=== PATIENT | male | born 1945 | race Caucasian/White ===

== ENCOUNTER 2017-10-21 10:32 | Emergency (ER) | payer OTHER, SELFPAY ==
[2017-10-21 10:42] VITALS: BP 134/84; PULSE 84; RESP 16; TEMP 36.4; O2SAT 96
[2017-10-21 11:54] LABS: Abs Immature Grans 0.02 k/cumm (0.0-0.09); Absolute Basophil Count 0.03 k/cumm (0.0-0.2); Absolute Eosinophil Count 0.06 k/cumm (0.0-0.7); Absolute Lymphocyte Count 1.78 k/cumm (1.2-3.4); Absolute Monocyte Count 0.49 k/cumm (0.11-0.7); Absolute Neutrophil Count 3.29 k/cumm (1.2-6.7); Basophils % 0.5; Eosinophils % 1.1; HCT 42.9 % (40.0-50.0); HGB 14.7 g/dL (13.5-17.5); Immature Grans % 0.4; Lymphocytes % 31.4; Mean Corp. HGB Concentration 34.3 g/dL (32.0-36.0); Mean Corpuscular Hemoglobin 31.5 pg (27.0-33.0); Mean Corpuscular Volume 92.1 fL (80-95); Mean Platelet Volume 10.8 fL (8.0-11.0); Monocytes % 8.6; Platelet Count 156 x1000/uL (130-400); RBC 4.66 m/cumm (4.50-6.00); RBC Distribution Width 14.3 % (11.8-14.1); White Blood Cell Count 5.67 k/cumm (4.4-10.8)
[2017-10-21 12:07] LABS: ALT 46 U/L (12-78); AST 25 U/L (15-37); Albumin 3.9 g/dL (3.4-5.0); Alkaline Phosphatase 61 U/L (46-116); Anion Gap 12.3 mmol/L (3-11); BUN 41 mg/dL (7-18); Bilirubin, Total 0.5 mg/dL (0.2-1.0); CO2 21.7 mmol/L (21.0-32.0); CREATININE 1.94 mg/dL (0.70-1.30); Calcium 8.6 mg/dL (8.5-10.1); Chloride 102 mmol/L (98-107); Estimated GFR 34.38 (mL/min/1.73m2); Glucose 106 mg/dL (70-100); Magnesium 1.7 mg/dL (1.8-2.4); Sodium 136 mmol/L (136-145)
[2017-10-21] MEDS: Normal Saline 1,000 ML 250 ML IV (12:09)
[2017-10-21 13:43] LABS: Bilirubin Negative (Negative); Blood Negative (Negative); Clarity Clear; Glucose Negative (Negative); Ketones Negative (Negative); Leukocyte Esterase Negative (Negative); Nitrite Negative (Negative); Urobilinogen 0.2 EU/dL (Up TO 0.2); pH 5.5 (5-8)
[2017-10-21 14:15] VITALS: BP 97/56; PULSE 77; RESP 16; TEMP 36.8; O2SAT 98
--- NOTE | 2017-10-21 14:30 | ED.GENADUL_ITS ---
Disposition Clinical Impression: Dehydration, Diarrhea Disposition: HOME Condition: Stable Instructions: Dehydration (ED), Acute Diarrhea (ED) Additional Instructions: Advance your diet as tolerated and stay well-hydrated drinking plenty of water. If you continue to have profuse diarrhea please provide outpatient sample to the lab for further testing and follow-up with your primary care provider in the next week for reassessment. Feel free to return to the emergency department immediately if you have any new or significant worsening of symptoms including abdominal pain, fever chills, mucus or bloody diarrhea. Referrals: Marco Lockwood [Primary Care Provider] - 1 week (As needed for reassessment if not improving) Medical Decision Making - Lab Data Laboratory Tests 10/21/17 10/21/17 10/21/17 11:45 11:45 13:34 WBC 5.67 RBC 4.66 Hgb 14.7 Hct 42.9 MCV 92.1 MCH 31.5 MCHC 34.3 RDW 14.3 H Plt Count 156 MPV 10.8 Immature Gran % 0.4 Neutrophils % 58.0 Lymphocytes % 31.4 Monocytes % 8.6 Eosinophils % 1.1 Basophils % 0.5 Absolute Neutrophils 3.29 Absolute Lymphocytes 1.78 Absolute Monocytes 0.49 Absolute Eosinophils 0.06 Absolute Basophils 0.03 Sodium 136 Potassium 4.0 Chloride 102 Carbon Dioxide 21.7 Anion Gap 12.3 H BUN 41 H Creatinine 1.94 H Estimated GFR/1.73 m2 34.38 Glucose 106 H Calcium 8.6 Magnesium 1.7 L Total Bilirubin 0.5 AST 25 ALT 46 Alkaline Phosphatase 61 Total Protein 8.0 Albumin 3.9 Urine Color Yellow Urine Clarity Clear Urine pH 5.5 Ur Specific Freedom 1.010 Urine Protein Negative Urine Ketones Negative Urine Blood Negative Urine Nitrite Negative Urine Bilirubin Negative Urine Urobilinogen 0.2 Ur Leukocyte Esterase Negative Urine Glucose Negative Results reviewed for labs ordered during visit: Yes - Medical Decision Making Patient presenting to the emergency department for chief complaint of diarrhea 3 days that seems to be worsened by eating. Patient denies any blood or mucus in his stools, recent antibiotic use, others in his immediate family that have similar symptoms. Patient also denies any fever chills. He states that he is very comfortable and denies any pain or discomfort only mild cramping with bowel movements which quickly resolves once bowel movement is done. He states that this is very watery diarrhea and he has intermittently attempted to use Imodium with no relief. Given patient's age and medical history concern for electrolyte abnormalities, dehydration. Plan to do labs and if possible obtain a stool sample. Pending these results patient given normal saline. After review of labs that do show signs of dehydration otherwise nondiagnostic patient was reassessed. Patient states that he feels slightly improved in his symptoms. Patient given p.o. hydration and crackers and still pending urinalysis. During urinalysis patient was able to provide a very scant amount of soft stool but stool was more formed per patient report and previously had been but still very soft in nature. Review of urinalysis that show appropriate specific gravity and fluids being complete with patient tolerating p.o. intake he was reassessed. Patient continuing to have appropriate p.o. intake of water hydration, states that he feels better, and again has had no further episodes of diarrhea. Patient was given outpatient order slip to provide stool sample if he continues to have symptoms otherwise to follow-up with his primary care provider as needed. Patient encouraged to return immediately for any new or worsening symptoms otherwise to well-hydrated at home. After discussion of diagnosis and plan of care with patient patient agreed and stated no further needs, questions, or concerns at this time. History of Present Illness - General Chief complaint: Nausea/Vomit/Diar Stated complaint: UNKNOWN Time Seen by Provider: 10/21/17 10:53 Source: patient, family, RN notes reviewed Mode of arrival: ambulatory Limitations: no limitations - History of Present Illness Initial comments: Patient reports for the past 3 days he has had intermittent loose stool. He denies any contaminated food intake, nontreated water, other people that he has been around with similar symptoms. He states that this worsens when he eats food and has loose stool but when he is not eating he does not have any symptoms. Patient denies any pain or discomfort and states he has not recently been on antibiotics. He does state when he has bowel movements he does end up having some mild cramping which quickly resolves. Onset/Timin -: days(s) Location: abdomen Quality: other (Intermittent cramping) Consistency: now resolved Improves with: none Worsens with: none Associated Symptoms: denies other symptoms Treatments Prior to Arrival: other (Imodium yesterday) - Related Data Aspirin 81 mg PO DAILY tab-cap 07/02/14 Lisinopril 20 mg PO DAILY tab-cap 07/02/14 Niacin (Inositol Niacinate) [Niacin 500 mg Capsule] 1,500 mg PO DAILY 07/02/14 Metoprolol Succinate 25 mg PO BID #45 tab-cap 10/06/14 Metoprolol Tartrate 100 mg PO BID tab-cap 10/06/14 Allergies Allergy/AdvReac Type Severity Reaction Status Date / Time gemfibrozil [From Lopid] Allergy Unverified 10/21/17 10:44 Penicillins Allergy Unverified 10/21/17 10:44 spironolactone Allergy Unverified 10/21/17 10:44 Hgptyzv-Rwy-Hem Reductase Allergy Unverified 10/21/17 10:44 Inhibitor Review of Systems Constitutional: malaise (Mild). denies: chills, fever Respiratory: denies: cough, shortness of breath, stridor, wheezing Cardiovascular: denies: chest pain, palpitations, syncope Gastrointestinal: as per HPI, diarrhea. denies: abdominal pain, nausea, vomiting, constipation, hematemesis, melena, hematochezia, other (Patient denies any blood or mucus noted in stools.) Genitourinary: denies: dysuria Musculoskeletal: denies: back pain Past Medical History - Past Medical History Medical history: CAD, hyperlipidemia Idiopathic cardiomyopathy, diverticulosis, testicular atrophy Surgical history: angioplasty/stent, appendectomy Psychiatric history: depression - Social History Smoking status: never smoker Alcohol use: none Drug use: none Living Situation: lives with family General Exam - General Limitations: no limitations General appearance: alert, in no apparent distress - Eye Eye exam: Absent: scleral icterus - ENT ENT exam: Present: normal orophraynx, mucous membranes dry (Mildly dry oral mucosa) - Respiratory Respiratory exam: Present: normal lung sounds bilaterally. Absent: respiratory distress, wheezes, rales, rhonchi, stridor - Cardiovascular Cardiovascular Exam: Present: regular rate, normal rhythm, normal heart sounds. Absent: systolic murmur, diastolic murmur, rubs, gallop, clicks, S3, S4 - GI/Abdominal GI/Abdominal exam: Present: soft, normal bowel sounds. Absent: tenderness, guarding, rebound, rigid, organomegaly, mass, bruit, pulsatile mass - Back Exam Back exam: Absent: CVA tenderness (R), CVA tenderness (L) - Neurological Exam Neurological exam: Present: alert, oriented X3, normal gait. Absent: altered - Skin Skin exam: Present: warm, dry, intact, normal color. Absent: cyanosis, diaphoretic, pallor, mottled Course Vital Signs - 24 hr 10/21/17 10/21/17 10:42 14:15 Temperature 36.4 C L 36.8 C Pulse 84 77 Respiratory 16 16 Rate Blood Pressure 134/84 97/56 Pulse Oximetry 96 98
[2017-10-21 14:37] VITALS: BP 101/56; PULSE 77; RESP 16; TEMP 36.8; O2SAT 98
== END 2017-10-21 14:35 | disposition home or self-care (01) ==
PROVIDERS: Nurse Practitioner Family; Emergency Provider Emergency Medicine; PCP Family Medicine
DX: R19.7 Diarrhea, unspecified (principal); E86.0 Dehydration
CPT/HCPCS: 36415; 80053; 87329; 96360; 96361; 99284; 81003; 83735; 85025; 87177; 87324

== ENCOUNTER → 2017-11-06 11:48 | Outpatient (BNVA) | payer OTHER, SELFPAY | PROVIDERS: PCP Family Medicine; Visit Provider Nurse Practitioner Family | DX: I25.5 Ischemic cardiomyopathy (principal); Z45.018 Encounter for adjustment and management of other part of cardiac pacemaker; I25.10 Atherosclerotic heart disease of native coronary artery without angina pectoris; Z95.810 Presence of automatic (implantable) cardiac defibrillator; E83.42 Hypomagnesemia | CPT/HCPCS: 93289; 99214 ==

== ENCOUNTER 2017-11-15 00:55 | Outpatient (CLI) | payer OTHER, SELFPAY ==
--- NOTE | 2017-11-15 10:40 | MERGE_ITS ---
*[facility]* *[facility]* [address] [place] [address] Date of study: 11/15/2017 Transthoracic Echocardiography M-mode, complete 2D, complete spectral Doppler, and color Doppler *STUDY CONCLUSIONS* Impressions: Persistence of thrombus material on defibrillator lead, with a large mobile part in the RA. Summary: 1. Left ventricle: The cavity size was normal. Wall thickness was normal. Systolic function was moderately reduced. The estimated ejection fraction was 35-40%. Moderate diffuse hypokinesis with regional variations. 2. Aortic valve: Moderate focal thickening involving the noncoronary cusp. There was trivial regurgitation. 3. Mitral valve: Mild thickening. 4. Right ventricle: The cavity size was mildly dilated. Wall thickness was normal. Pacer wire or catheter noted in right ventricle. Systolic function was mildly reduced. 5. Right atrium: There was a moderate to large, partially mobile thrombus attached to the device lead in the atrial cavity (size 1.8 x 0.8 cm for the mobile part, more echodense material along the lead). 6. Tricuspid valve: There was mild-moderate regurgitation. 7. Pulmonary arteries: Pulmonary systolic pressure was mildly increased. PA peak pressure: 43mm Hg (S). *PATIENT PRESENTATION* Height: 175.3cm ((69in) ) S/D Pressure: 112 / 67 Weight: 83.9kg ((184.6lb) ) BSA: 2.04m^2 Test start time: 10:50 AM. Test stop time: 11:40 AM. PERFORMING Unknown PERFORMING [facility] ORDERING Clive Liang, Mikayla REFERRING TarnovMikayla Finn Aprn PEDIATRIC PSYCHOLOGIST Estefani Araujo, RT (R)(CT), RDCS *PROCEDURE DATA* Procedure information: The patient was identified by two identifiers. This study was interpreted by [facility]. Pertinent images and digital data are archived for permanent storage and are available for subsequent review. Comparison was made to the study of 05/08/2017. Study status: Routine. Transthoracic echocardiography. M-mode, complete 2D, complete spectral Doppler, and color Doppler. A Transthoracic Echocardiogram was performed. Scanning was performed from the parasternal, apical, subcostal, and suprasternal notch acoustic windows. Images were obtained using an [id number] cardiac ultrasound machine. Study completion: The patient tolerated the procedure well. History: PMH: Ischemic CM. *CARDIAC ANATOMY* Left ventricle: The cavity size was normal. Wall thickness was normal. Systolic function was moderately reduced. The estimated ejection fraction was 35-40%. Moderate diffuse hypokinesis with regional variations. There was no evidence of elevated ventricular filling pressure by Doppler parameters. Aortic valve: Trileaflet; mildly thickened, mildly calcified leaflets. Moderate focal thickening involving the noncoronary cusp. Mobility was not restricted. Doppler: Transvalvular velocity was within the normal range. There was no stenosis. There was trivial regurgitation. VTI ratio of LVOT to aortic valve: 0.64. Valve area (VTI): 2.1cm^2. Indexed valve area (VTI): 1cm^2/m^2. Peak velocity ratio of LVOT to aortic valve: 0.62. Valve area (Vmax): 2cm^2. Indexed valve area (Vmax): 1cm^2/m^2. Mean velocity ratio of LVOT to aortic valve: 0.64. Valve area (Vmean): 2.1cm^2. Indexed valve area (Vmean): 1cm^2/m^2. Mean gradient (S): 2.3mm Hg. Peak gradient (S): 3.9mm Hg. Aorta: Aortic root: The aortic root was at upper normal limits. Aortic arch: The aortic arch was normal in size. Mitral valve: Mildly thickened leaflets. Mild thickening. Mobility was not restricted. Doppler: Transvalvular velocity was within the normal range. There was no evidence for stenosis. There was trivial regurgitation. Valve area by pressure half-time: 3.9cm^2. Indexed valve area by pressure half-time: 1.9cm^2/m^2. Left atrium: The atrium was normal in size. Right ventricle: The cavity size was mildly dilated. Wall thickness was normal. Pacer wire or catheter noted in right ventricle. Systolic function was mildly reduced. Pulmonic valve: Poorly visualized. Doppler: Transvalvular velocity was within the normal range. There was no evidence for stenosis. There was trivial regurgitation. Tricuspid valve: Structurally normal valve. Doppler: Transvalvular velocity was within the normal range. There was no evidence for stenosis. There was mild-moderate regurgitation. Pulmonary artery: Pulmonary systolic pressure was mildly increased. Main pulmonary artery: The artery was not well visualized. Right atrium: The atrium was normal in size. Pacer wire or catheter noted in right atrium. There was a moderate to large, partially mobile thrombus attached to the device lead in the atrial cavity (size 1.8 x 0.8 cm for the mobile part, more echodense material along the lead). Pericardium: There was no pericardial effusion. Systemic veins: Inferior vena cava: Poorly visualized. The vessel was patent and normal in size. The respirophasic diameter changes were in the normal range (greater than or equal to 50%). Baseline ECG: Paced rhythm. Measurements Left ventricle Value 05/18/2017 Reference LV ID, ED, PLAX 5.1 cm 5.2 3.5 - 6.0 LV ID, ES, PLAX (H) 4.2 cm 4.4 2.1 - 4.0 LV PW thickness, ED, PLAX 1.0 cm 1.0 LV end-diastolic volume, 83 ml 63 1-p A2C LV ejection fraction, 1-p 35 % 29 A2C LV end-diastolic volume, 98 ml 98 1-p A4C LV ejection fraction, 1-p 39 % 33 A4C LV e', lateral 0.085 m/sec 0.051 LV E/e', lateral 6 7 LV e', medial 0.049 m/sec 0.04 LV E/e', medial 11 9 LV e', average 0.067 m/sec 0.045 LV E/e', average 8 8 Ventricular septum Value 05/18/2017 Reference IVS thickness, ED, PLAX 1.0 cm 1.0 LVOT Value 05/18/2017 Reference LVOT ID, A-P 2.0 cm 2.0 LVOT area 3.3 cm^2 3.1 LVOT peak velocity, S 0.61 m/sec 0.65 LVOT mean velocity, S 0.46 m/sec 0.43 LVOT VTI, S 14.9 cm 12.8 LVOT peak gradient, S 1.5 mm Hg 1.7 LVOT mean gradient, S 1 mm Hg 0.9 Stroke volume (SV), LVOT 49 ml 40 DP Stroke index (SV/bsa), 24 ml/m^2 19 LVOT DP Aortic valve Value 05/18/2017 Reference Aortic valve peak 1 m/sec 0.9 velocity, S Aortic valve mean 0.72 m/sec 0.72 velocity, S Aortic valve VTI, S 23.2 cm 17.7 Aortic mean gradient, S 2.3 mm Hg 2.2 Aortic peak gradient, S 3.9 mm Hg VTI ratio, LVOT/AV 0.64 0.72 Aortic valve area, VTI 2.1 cm^2 2.3 Velocity ratio, peak, 0.62 0.69 LVOT/AV Aortic valve area, peak 2 cm^2 2.2 velocity Velocity ratio, mean, 0.64 0.6 LVOT/AV Aortic valve area, mean 2.1 cm^2 1.9 velocity Aortic valve area/bsa, 1 cm^2/m^2 0.9 mean velocity Aorta Value 05/18/2017 Reference Aortic root ID, ED 3.7 cm 3.8 Ascending aorta ID, A-P, S 3.3 cm 3.3 Aortic arch ID, 2.5 cm 2.0 - 3.6 innominate-LCCA RVOT Value 05/18/2017 Reference RVOT VTI, S 9.6 cm 7.9 Left atrium Value 05/18/2017 Reference LA ID, A-P, ES 2.7 cm LA ID/bsa, A-P 1.3 cm/m^2 <=2.2 LA area, ES, A4C 18.5 cm^2 18.6 8.8 - 23.4 LA area, ES, A2C 14 cm^2 13 LA volume/bsa, ES, 1-p A4C 27 ml/m^2 25 LA volume, ES, 2-p 36 ml 42 LA volume/bsa, ES, 2-p 18 ml/m^2 21 LA/aortic root ratio 0.71 Mitral valve Value 05/18/2017 Reference Mitral E-wave peak 0.53 m/sec 0.37 velocity Mitral A-wave peak 0.75 m/sec 0.67 velocity Mitral deceleration time 196 ms 268 150 - 230 Mitral pressure half-time 57 ms 78 Mitral E/A ratio, peak 0.7 0.55 Mitral valve area, PHT, DP 3.9 cm^2 2.8 Pulmonary veins Value 05/18/2017 Reference Pulmonary vein peak 0.5 m/sec 0.55 velocity, S Pulmonary vein peak 0.34 m/sec 0.38 velocity, D Pulmonary vein velocity 1.47 1.45 ratio, peak, S/D Pulmonary vein A-wave 0.32 m/sec 0.29 reversal peak velocity Pulmonary vein A-wave 122 ms reversal duration Pulmonary arteries Value 05/18/2017 Reference PA pressure, S, DP (H) 43 mm Hg <=30 Tricuspid valve Value 05/18/2017 Reference Tricuspid regurg peak 2.9 m/sec 2.6 velocity Tricuspid peak RV-RA 32.9 mm Hg 27.4 gradient Right atrium Value 05/18/2017 Reference RA area, ES, A4C 15.3 cm^2 15.7 8.3 - 19.5 Systemic veins Value 05/18/2017 Reference Estimated CVP 10 mm Hg Right ventricle Value 05/18/2017 Reference RV pressure, S, DP (H) 43 mm Hg <=30 Legend: (L) and (H) mason values outside specified reference range. I have personally reviewed the images and have reviewed and edited the reported findings. Electronically signed by Hui Dee 11/15/2017 14:59
== END 2017-11-15 01:15 ==
PROVIDERS: PCP Family Medicine; Visit Provider Nurse Practitioner Family
DX: I25.5 Ischemic cardiomyopathy (principal); I25.10 Atherosclerotic heart disease of native coronary artery without angina pectoris; I10 Essential (primary) hypertension; E11.9 Type 2 diabetes mellitus without complications; Z95.0 Presence of cardiac pacemaker; I07.1 Rheumatic tricuspid insufficiency
CPT/HCPCS: 93306

== ENCOUNTER → 2017-12-05 14:07 | Outpatient (BNVA) | payer OTHER, SELFPAY | PROVIDERS: PCP Family Medicine; Visit Provider Internal Medicine Cardiovascular Disease | DX: T85.868A Thrombosis due to other internal prosthetic devices, implants and grafts, initial encounter (principal); Z95.810 Presence of automatic (implantable) cardiac defibrillator; I25.10 Atherosclerotic heart disease of native coronary artery without angina pectoris; I25.5 Ischemic cardiomyopathy; Z79.01 Long term (current) use of anticoagulants | CPT/HCPCS: 99215 ==

== ENCOUNTER 2018-05-02 12:21 | Outpatient (CLI) | payer OTHER, SELFPAY ==
--- NOTE | 2018-05-02 11:53 | DI.RAD_ITS ---
SYMPTOMS/DIAGNOSIS: RT FOOT PAIN, M79.671 RIGHT FOOT: No fracture or dislocation is seen. There are no significant degenerative changes. No bony erosions are seen. An ossicle is seen adjacent to the lateral aspect of the anterior calcaneus. IMPRESSION: Negative right foot.
[2018-05-02 12:44] LABS: HCT 41.8 % (40.0-50.0); HGB 13.8 g/dL (13.5-17.5); Mean Corpuscular Hemoglobin 30.9 pg (27.0-33.0); Mean Corpuscular Volume 93.7 fL (80-95); Mean Platelet Volume 10.7 fL (8.0-11.0); Platelet Count 171 x1000/uL (130-400); RBC 4.46 m/cumm (4.50-6.00); RBC Distribution Width 14.3 % (11.8-14.1); White Blood Cell Count 7.21 k/cumm (4.4-10.8)
[2018-05-02 13:36] LABS: C-Reactive Protein 1.34 mg/dL (0.0-0.3); Uric Acid 7.8 mg/dL (3.5-7.2)
== END 2018-05-02 12:41 ==
PROVIDERS: PCP Family Medicine; Visit Provider Nurse Practitioner
DX: M10.9 Gout, unspecified (principal); M79.671 Pain in right foot
CPT/HCPCS: 36415; 85027; 73630; 84550; 86140

== ENCOUNTER → 2018-05-07 11:21 | Outpatient (BNVA) | payer OTHER, SELFPAY | PROVIDERS: PCP Family Medicine; Visit Provider Nurse Practitioner Family | DX: T85.8 Other specified complications of internal prosthetic devices, implants and grafts, not elsewhere classified (principal); Z79.01 Long term (current) use of anticoagulants; I25.10 Atherosclerotic heart disease of native coronary artery without angina pectoris; E83.42 Hypomagnesemia; I25.5 Ischemic cardiomyopathy; E78.5 Hyperlipidemia, unspecified; Z45.02 Encounter for adjustment and management of automatic implantable cardiac defibrillator | CPT/HCPCS: 93289; 99214 ==

== ENCOUNTER 2018-05-16 00:55 | Outpatient (CLI) | payer OTHER, SELFPAY ==
--- NOTE | 2018-05-16 10:30 | MERGE_ITS ---
*[facility]* *[facility]* [address] [place] [address] Date of study: 05/16/2018 Transthoracic Echocardiography M-mode, complete 2D, complete spectral Doppler, and color Doppler *STUDY CONCLUSIONS* Summary: 1. Study data: Comparison was made to the study of 11/15/2017. EF 35-40% then. Mobile thrombus noted in association with device lead, 1.8 x 0.8 cm. 2. Left ventricle: The cavity size was normal. Systolic function was mildly reduced. The estimated ejection fraction was 45-50%. 3. Mitral valve: There was mild regurgitation. 4. Right ventricle: The cavity size was normal. Wall thickness was normal. Pacer wire or catheter noted in right ventricle. Systolic function was normal. 5. Right atrium: Pacer wire or catheter noted in right atrium. Small strandlike echodensity noted on device lead in RA. Measures 0.6 cm in long axis. Mass is of homogeneous echotexture, demonstrates movement independent of other cardiac structures. 6. Atrial septum: No defect or patent foramen ovale was identified. 7. Tricuspid valve: There was mild-moderate regurgitation. 8. Pulmonary arteries: Pulmonary systolic pressure was in the range of 20mm Hg to 30mm Hg. 9. Inferior vena cava: The vessel was patent and normal in size. The respirophasic diameter changes were in the normal range (greater than or equal to 50%), consistent with normal central venous pressure. *PATIENT PRESENTATION* Height: 172.7cm ((68in) ) S/D Pressure: 102 / 59 Weight: 83.9kg ((184.6lb) ) BSA: 2.03m^2 Test start time: 10:40 AM. Test stop time: 11:40 AM. ORDERING Mikayla Duffy REFERRING Mikayla Duffy PERFORMING Unknown PERFORMING [facility] [employer]OUR MIXER RT Kala Samaniego)(LYN), [facility] CONSULTING Marco Lockwood *PROCEDURE DATA* Procedure information: The patient was identified by two identifiers. This study was interpreted by [facility]. Pertinent images and digital data are archived for permanent storage and are available for subsequent review. Comparison was made to the study of 11/15/2017. Study status: Routine. Transthoracic echocardiography. M-mode, complete 2D, complete spectral Doppler, and color Doppler. A Transthoracic Echocardiogram was performed. Scanning was performed from the parasternal, apical, subcostal, and suprasternal notch acoustic windows. Images were obtained using an [id number] cardiac ultrasound machine. Image quality was good. Study completion: The patient tolerated the procedure well. History: PMH: ? Size of clot/thrombus on lead. Cardiomyopathy. i42.9 ICD z 95.810 *CARDIAC ANATOMY* Left ventricle: The cavity size was normal. Systolic function was mildly reduced. The estimated ejection fraction was 45-50%. The tissue Doppler parameters were abnormal. There was no evidence of elevated ventricular filling pressure by Doppler parameters. Aortic valve: Trileaflet; mildly thickened, mildly calcified leaflets. Doppler: There was no stenosis. There was no regurgitation. VTI ratio of LVOT to aortic valve: 0.63. Valve area (VTI): 2.1cm^2. Indexed valve area (VTI): 1cm^2/m^2. Peak velocity ratio of LVOT to aortic valve: 0.65. Valve area (Vmax): 2.1cm^2. Indexed valve area (Vmax): 1.1cm^2/m^2. Mean velocity ratio of LVOT to aortic valve: 0.66. Valve area (Vmean): 2.2cm^2. Indexed valve area (Vmean): 1.1cm^2/m^2. Mean gradient (S): 2.2mm Hg. Peak gradient (S): 3.5mm Hg. Aorta: Aortic root: The aortic root was normal in size. Ascending aorta: The ascending aorta was normal in size. Mitral valve: Doppler: There was no evidence for stenosis. There was mild regurgitation. Valve area by pressure half-time: 2.8cm^2. Indexed valve area by pressure half-time: 1.4cm^2/m^2. Left atrium: The atrium was normal in size. Atrial septum: No defect or patent foramen ovale was identified. Right ventricle: The cavity size was normal. Wall thickness was normal. Pacer wire or catheter noted in right ventricle. Systolic function was normal. Pulmonic valve: Doppler: There was no evidence for stenosis. There was mild regurgitation. Peak gradient (S): 3.7mm Hg. Tricuspid valve: Doppler: There was mild-moderate regurgitation. Pulmonary artery: Poorly visualized. Pulmonary systolic pressure was in the range of 20mm Hg to 30mm Hg. Right atrium: The atrium was normal in size. Pacer wire or catheter noted in right atrium. Pericardium: There was no pericardial effusion. Systemic veins: Inferior vena cava: Well visualized. The vessel was patent and normal in size. The respirophasic diameter changes were in the normal range (greater than or equal to 50%), consistent with normal central venous pressure. Baseline ECG: Paced rhythm. Measurements Left ventricle Value 11/15/2017 Reference LV ID, ED, PLAX 5.1 cm 5.1 3.5 - 6.0 LV ID, ES, PLAX (H) 4.1 cm 4.2 2.1 - 4.0 LV PW thickness, ED, PLAX 1.0 cm 1.0 LV end-diastolic volume, 91 ml 83 1-p A2C LV ejection fraction, 1-p 40 % 35 A2C LV end-diastolic volume, 107 ml 98 1-p A4C LV ejection fraction, 1-p 48 % 39 A4C LV e', lateral 0.049 m/sec 0.085 LV E/e', lateral 7 6 LV e', medial 0.04 m/sec 0.049 LV E/e', medial 9 11 LV e', average 0.044 m/sec 0.067 LV E/e', average 8 8 Ventricular septum Value 11/15/2017 Reference IVS thickness, ED, PLAX 1.0 cm 1.0 LVOT Value 11/15/2017 Reference LVOT ID, A-P 2.0 cm 2.0 LVOT area 3.3 cm^2 3.3 LVOT peak velocity, S 0.61 m/sec 0.61 LVOT mean velocity, S 0.47 m/sec 0.46 LVOT VTI, S 11.3 cm 14.9 LVOT peak gradient, S 1.5 mm Hg 1.5 LVOT mean gradient, S 1 mm Hg 1 Stroke volume (SV), LVOT 37 ml 49 DP Stroke index (SV/bsa), 18 ml/m^2 24 LVOT DP Aortic valve Value 11/15/2017 Reference Aortic valve peak 0.9 m/sec 1 velocity, S Aortic valve mean 0.71 m/sec 0.72 velocity, S Aortic valve VTI, S 18.0 cm 23.2 Aortic mean gradient, S 2.2 mm Hg 2.3 Aortic peak gradient, S 3.5 mm Hg 3.9 VTI ratio, LVOT/AV 0.63 0.64 Aortic valve area, VTI 2.1 cm^2 2.1 Velocity ratio, peak, 0.65 0.62 LVOT/AV Aortic valve area, peak 2.1 cm^2 2 velocity Velocity ratio, mean, 0.66 0.64 LVOT/AV Aortic valve area, mean 2.2 cm^2 2.1 velocity Aortic valve area/bsa, 1.1 cm^2/m^2 1 mean velocity Aorta Value 11/15/2017 Reference Aortic root ID, ED 3.7 cm 3.7 Ascending aorta ID, A-P, S 3.4 cm 3.3 RVOT Value 11/15/2017 Reference RVOT VTI, S 10.4 cm 9.6 Left atrium Value 11/15/2017 Reference LA ID, A-P, ES 2.7 cm 2.7 LA ID/bsa, A-P 1.3 cm/m^2 1.3 <=2.2 LA area, ES, A4C 17.6 cm^2 18.5 8.8 - 23.4 LA area, ES, A2C 13 cm^2 14 LA volume/bsa, ES, 1-p A4C 26 ml/m^2 27 LA volume, ES, 2-p 38 ml 36 LA volume/bsa, ES, 2-p 19 ml/m^2 18 LA/aortic root ratio 0.72 0.71 Mitral valve Value 11/15/2017 Reference Mitral E-wave peak 0.34 m/sec 0.53 velocity Mitral A-wave peak 0.63 m/sec 0.75 velocity Mitral deceleration time (H) 268 ms 196 150 - 230 Mitral pressure half-time 78 ms 57 Mitral E/A ratio, peak 0.54 0.7 Mitral valve area, PHT, DP 2.8 cm^2 3.9 Pulmonary veins Value 11/15/2017 Reference Pulmonary vein peak 0.75 m/sec 0.5 velocity, S Pulmonary vein peak 0.31 m/sec 0.34 velocity, D Pulmonary vein velocity 2.42 1.47 ratio, peak, S/D Pulmonary vein A-wave 0.85 m/sec 0.32 reversal peak velocity Tricuspid valve Value 11/15/2017 Reference Tricuspid regurg peak 2.5 m/sec 2.9 velocity Tricuspid peak RV-RA 24.6 mm Hg 32.9 gradient Right atrium Value 11/15/2017 Reference RA area, ES, A4C 17.6 cm^2 15.3 8.3 - 19.5 Pulmonic valve Value 11/15/2017 Reference Pulmonic peak gradient, S 3.7 mm Hg Legend: (L) and (H) mason values outside specified reference range. I have personally reviewed the images and have reviewed and edited the reported findings. Electronically signed by Hira Downey MD 05/16/2018 14:30
== END 2018-05-16 01:15 ==
PROVIDERS: PCP Family Medicine; Visit Provider Nurse Practitioner Family
DX: I42.9 Cardiomyopathy, unspecified (principal); I25.10 Atherosclerotic heart disease of native coronary artery without angina pectoris; I34.1 Nonrheumatic mitral (valve) prolapse; I36.1 Nonrheumatic tricuspid (valve) insufficiency; Z95.810 Presence of automatic (implantable) cardiac defibrillator
CPT/HCPCS: 93306

== ENCOUNTER 2018-05-23 09:39 | Outpatient (CLI) | payer OTHER, SELFPAY ==
[2018-05-23 10:46] LABS: HCT 38.2 % (40.0-50.0); HGB 12.9 g/dL (13.5-17.5); Mean Corp. HGB Concentration 33.8 g/dL (32.0-36.0); Mean Corpuscular Hemoglobin 31.4 pg (27.0-33.0); Mean Corpuscular Volume 92.9 fL (80-95); Mean Platelet Volume 10.8 fL (8.0-11.0); Platelet Count 163 x1000/uL (130-400); RBC 4.11 m/cumm (4.50-6.00); RBC Distribution Width 14.3 % (11.8-14.1); White Blood Cell Count 5.26 k/cumm (4.4-10.8)
[2018-05-23 11:52] LABS: ALT 40 U/L (12-78); AST 23 U/L (15-37); Albumin 3.8 g/dL (3.4-5.0); Alkaline Phosphatase 64 U/L (46-116); Anion Gap 9.7 mmol/L (3-11); BUN 21 mg/dL (7-18); Bilirubin, Total 0.4 mg/dL (0.2-1.0); CO2 26.3 mmol/L (21.0-32.0); CREATININE 1.01 mg/dL (0.70-1.30); Chloride 103 mmol/L (98-107); Cholesterol 226 mg/dL (50-200); Glucose 139 mg/dL (70-100); HDL Cholesterol 32 mg/dL (40-60); LDL CHOLESTEROL 81 mg/dL (<100); Magnesium 1.7 mg/dL (1.8-2.4); Potassium 4.3 mmol/L (3.5-5.1); Sodium 139 mmol/L (136-145); TSH 2.34 uIU/mL (0.358-3.74); Total Protein 7.1 g/dL (6.4-8.2); Triglyceride 550 mg/dL (30-150)
== END 2018-05-23 09:59 ==
PROVIDERS: PCP Family Medicine; Visit Provider Nurse Practitioner Family
DX: E78.5 Hyperlipidemia, unspecified (principal); R53.83 Other fatigue; R06.02 Shortness of breath; I42.9 Cardiomyopathy, unspecified; E83.42 Hypomagnesemia
CPT/HCPCS: 36415; 80053; 80061; 83721; 85027; 83735; 84443

== ENCOUNTER 2018-08-02 13:14 | Outpatient (CLI) | payer OTHER, SELFPAY ==
--- NOTE | 2018-08-02 14:00 | DI.RAD_ITS ---
SYMPTOMS/DIAGNOSIS: ISCHEMIC CARDIOMYOPATHY, I25.5 CHEST X-RAY, PA AND LATERAL: Comparison is 01/02/11. The heart size and pulmonary vasculature are within normal limits. There is a single lead pacing device in good position. The lungs are clear. No effusions or pneumothoraces are identified. The bones are intact. IMPRESSION: No acute pulmonary process.
[2018-08-02 14:25] LABS: Abs Immature Grans 0.01 k/cumm (0.0-0.09); Absolute Basophil Count 0.01 k/cumm (0.0-0.2); Absolute Monocyte Count 0.33 k/cumm (0.11-0.7); Absolute Neutrophil Count 3.06 k/cumm (1.2-6.7); Basophils % 0.2; Eosinophils % 1.8; HCT 39.7 % (40.0-50.0); HGB 13.2 g/dL (13.5-17.5); Immature Grans % 0.2; Lymphocytes % 36.3; Mean Corp. HGB Concentration 33.2 g/dL (32.0-36.0); Mean Corpuscular Hemoglobin 31.5 pg (27.0-33.0); Mean Corpuscular Volume 94.7 fL (80-95); Mean Platelet Volume 11.1 fL (8.0-11.0); Neutrophils % 55.5; Platelet Count 164 x1000/uL (130-400); RBC 4.19 m/cumm (4.50-6.00); RBC Distribution Width 14.1 % (11.8-14.1); White Blood Cell Count 5.51 k/cumm (4.4-10.8)
[2018-08-02 14:52] LABS: Anion Gap 8.3 mmol/L (3-11); BUN 23 mg/dL (7-18); CO2 25.7 mmol/L (21.0-32.0); CREATININE 1.02 mg/dL (0.70-1.30); Calcium 8.7 mg/dL (8.5-10.1); Chloride 102 mmol/L (98-107); Glucose 178 mg/dL (70-100); Potassium 4.4 mmol/L (3.5-5.1); Sodium 136 mmol/L (136-145)
== END 2018-08-02 13:34 ==
PROVIDERS: Nurse Practitioner Family; PCP Family Medicine; Visit Provider Internal Medicine Cardiovascular Disease
DX: I25.5 Ischemic cardiomyopathy (principal)
CPT/HCPCS: 36415; 80048; 71046; 85025

== ENCOUNTER → 2018-08-13 14:55 | Outpatient (BNVA) | payer OTHER, SELFPAY | PROVIDERS: PCP Family Medicine; Visit Provider Nurse Practitioner Family | DX: Z48.01 Encounter for change or removal of surgical wound dressing (principal); Z45.018 Encounter for adjustment and management of other part of cardiac pacemaker | CPT/HCPCS: 93288; 99212 ==

== ENCOUNTER → 2018-11-05 11:30 | Outpatient (BNVA) | payer OTHER, SELFPAY | PROVIDERS: PCP Family Medicine; Visit Provider Nurse Practitioner Family | DX: T85.868A Thrombosis due to other internal prosthetic devices, implants and grafts, initial encounter (principal); Z45.02 Encounter for adjustment and management of automatic implantable cardiac defibrillator; I25.10 Atherosclerotic heart disease of native coronary artery without angina pectoris; E83.42 Hypomagnesemia; I25.5 Ischemic cardiomyopathy; E78.5 Hyperlipidemia, unspecified; Z79.01 Long term (current) use of anticoagulants | CPT/HCPCS: 93289; 99214 ==

== ENCOUNTER 2019-09-24 12:11 | Outpatient (CLI) | payer OTHER, SELFPAY ==
--- NOTE | 2019-09-24 | DI.RAD_ITS ---
EXAM: XR CHEST 2V PA LATERAL CLINICAL HISTORY: BASILAR RALES R09.89 TECHNIQUE: 2D digital imaging was performed. COMPARISON: CR XR CHEST 2V PA LATERAL from 08/02/2018 FINDINGS: MEDIASTINUM: Normal. HEART: Normal. PULMONARY VASCULATURE: Normal. LUNGS: Clear. PLEURAL SPACE: No pleural effusion or pneumothorax. BONE:Normal. OTHER FINDINGS:Single lead pacing device is stable in position. IMPRESSION: No acute pulmonary findings. DATA REPOSITORY: RADIATION DOSE DELIVERED:
== END 2019-09-24 12:31 ==
PROVIDERS: PCP Family Medicine; Visit Provider Family Medicine
DX: R09.89 Other specified symptoms and signs involving the circulatory and respiratory systems (principal)
CPT/HCPCS: 71046

== ENCOUNTER 2019-09-24 21:30 | Outpatient (REF) | payer OTHER, SELFPAY ==
[2019-09-24 21:01] LABS: BUN 30 mg/dL (7-18); CREATININE 1.12 mg/dL (0.70-1.30); Calcium 8.8 mg/dL (8.5-10.1); Chloride 103 mmol/L (98-107); Glucose 153 mg/dL (74-106); Magnesium 1.7 mg/dL (1.8-2.4); Potassium 4.2 mmol/L (3.5-5.1); Sodium 138 mmol/L (136-145); Uric Acid 8.6 mg/dL (3.5-7.2)
== END 2019-09-24 21:50 ==
LOC: NCHCN 21:30
PROVIDERS: PCP Family Medicine; Visit Provider Family Medicine
DX: M10.9 Gout, unspecified (principal); E11.9 Type 2 diabetes mellitus without complications; E83.42 Hypomagnesemia
CPT/HCPCS: 80048; 83735; 84550

== ENCOUNTER 2019-12-02 01:18 | Outpatient (CLI) | payer OTHER, SELFPAY ==
--- NOTE | 2019-12-02 13:53 | DI.US_ITS ---
APPROVED REPORT EXAM: Comprehensive 2D, Doppler, and color-flow Echocardiogram Patient Location: Out-Patient [employer] Operator: Martha Freeman RDCS (AE) Indications: Ischemic Cardiomyopathy Other Information Study Quality: Adequate Conclusion Left Ventricle : The left ventricle is normal size. Left ventricular systolic function is moderately decreased. There is normal left ventricular wall thickness. There is global hypokinesis of the left v entricle. The left ventricular diastolic function is normal. LVEF is 40-45%. Right Ventricle : The right ventricle is normal size. The right ventricular systolic function is norm al. The RVSP is 25.2mmHg. Atria : The left atrium size is normal. The right atrium size is normal. Mitral Valve : Mild mitral annular calcification. No evidence of mitral valve stenosis. Mild mitral r egurgitation. Great Vessels : The aortic root is normal in size. The ascending aorta is mildly dilated. Aortic arch is normal in caliber. IVC is normal in size and collapses >50% with inspiration. Please see remainder of study for further details. Compared to study from 05/16/2018, there is no significant change. Device wire appears free of thromb us. Wall motion Left Ventricle The left ventricle is normal size. Left ventricular systolic function is moderately decreased. There is normal left ventricular wall thickness. There is global hypokinesis of the left ventricle. The lef t ventricular diastolic function is normal. There is no ventricular septal defect visualized. LVEF is 40-45%. Right Ventricle The right ventricle is normal size. The right ventricular systolic function is normal. The RVSP is 25 .2mmHg. Device lead is present in the right ventricle. Atria The left atrium size is normal. The right atrium size is normal. The interatrial septum is intact wit h no evidence for an atrial septal defect. Aortic Valve The Aortic valve is sclerotic. Aortic valve is trileaflet. There is no aortic valvular stenosis. No a ortic regurgitation is present. Mitral Valve Mild mitral annular calcification. No evidence of mitral valve stenosis. Mild mitral regurgitation. Tricuspid Valve The tricuspid valve is normal in structure. There is no tricuspid valve stenosis. Mild tricuspid regu rgitation. Pulmonic Valve The pulmonary valve is normal in structure. There is no pulmonic valvular stenosis. Mild pulmonic reg urgitation. Great Vessels The aortic root is normal in size. The ascending aorta is mildly dilated. Aortic arch is normal in ca liber. IVC is normal in size and collapses >50% with inspiration. Pericardium There is no pericardial effusion. 2D Dimensions IVSD d PLAX 0.95 cm M: 0.6-1.2 LV Vol A2C d MOD 100.3 mL LVPW d PLAX 0.96 cm M: 0.6 - 1.2 LV Vol A4C d MOD 119.8 mL LVID d PLAX 4.90 cm M: 4.2 - 5.8 LA vol/ BSA A2C s A-L 23.8 mL/m2 LVDs 3.70 cm M: 2.5 - 4.0 LA vol/ BSA A4C s A-L 21.8 mL/m2 Ao Root d 3.48 cm M: 3.1 - 3.7 LA Vol/ BSA Biplane s A-L 24.1 mL/m2 RA Area A4C 16.28 cm2 LA Area A4C s MOD 15.38 cm2 RA Vol/ BSA A4C s A-L 21.1 mL/m2 LA Area A2C s MOD 17.01 cm2 Ao Asc Diam d 3.64 cm M: 2.6 - 3.4 LV EF A4C MOD 43.2 % LV EF Teichholz 47.6 % LV EF A2C MOD 45.0 % LVEF (Hagan's) 44.43 % M: 52 - 72 LV EF Biplane MOD 44.4 % LV Volume 82.81 mL M: 62 - 150 SV 48.87 mL LV Volume Index 42.03 mL/m2 M: 34 - 74 SV Index 24.71 mL/m2 LV Vol Biplane MOD 110.0 mL FS 23.95 % M-Mode TAPSE 1.97 cm (M/F) >1.7 LV Diastology MV E' medial 0.042 (>0.07 m/s) E/A Ratio 0.5 LV E/e MED 10.20 (<14) MV E Vmax 0.43 (0.4-1.3 m/s) MV E' lateral 0.056 (>0.1 m/s) MV A Vmax 0.80 (0.4-1.3 m/s) LV E/e LAT 7.55 (<14) MV E/A Ratio 0.52 MV E/E' medial 10.24 MV E/E' lateral 7.57 Aortic Valve LVOT Area 4.08 cm2 AoV Area Vmax 2.80 cm2 LVOT Vmax 0.74 m/s AoV Area/ BSA (Vmax) 1.42 cm2/m2 LVOT Mean Lars. 0.49 m/s TOMI Mean Lars. 2.46 cm2 LVOT Peak Grad 2.2 mmHg TOMI Mean Lars. Index 1.24 cm2/m2 LVOT Mean Grad 1.1 mmHg LVOT VTI 0.142 m LVOT Diam s 2.25 cm AoV Vmax 1.08 m/s Velocity Ratio 0.68 AoV Mean Lars. 0.82 m/s AoV Peak Grad 4.6 mmHg LVOT SV 58.05 mL AoV Mean Grad 2.9 mmHg AoV VTI 0.205 m AoV Area VTI 2.83 cm2 AoV Area/ BSA (VTI) 1.43 cm/m2 Mitral Valve MV DT 216 (160-240 msec) MV PHT 63 msec MV Area PHT 3.51 cm2 Pulmonary Valve PV Vmax 1.08 (0.5-1.5 m/s) RVOT Peak Gr. 0.89 mmHg PV Peak Grad 4.6 mmHg RVOT Mean Gr. 0.45 mmHg PV Mean Grad 2.1 mmHg RVOT VTI 0.096 m PV VTI 0.178 m RVOT Vmax 0.47 m/s Tricuspid Valve TR Peak Grad 22.2 mmHg TR Vmax 2.36 m/s RA Pressure 3.00 mmHg RVSP (TR) 25.2 mmHg
== END 2019-12-02 01:38 ==
PROVIDERS: PCP Family Medicine; Visit Provider Nurse Practitioner Family
DX: I25.5 Ischemic cardiomyopathy (principal); I34.0 Nonrheumatic mitral (valve) insufficiency
CPT/HCPCS: 93306

== ENCOUNTER 2020-03-08 18:45 | Outpatient (REF) | payer OTHER, SELFPAY ==
[2020-03-08 19:14] LABS: Cholesterol 228 mg/dL (<200); HDL Cholesterol 27 mg/dL (40-60); Triglyceride 543 mg/dL (<150)
[2020-03-08 19:36] LABS: LDL CHOLESTEROL 92 mg/dL (<100)
== END 2020-03-08 19:05 ==
LOC: NCHCN 18:45
PROVIDERS: PCP Family Medicine; Visit Provider Family Medicine
DX: E78.1 Pure hyperglyceridemia (principal)
CPT/HCPCS: 80061; 83721

== ENCOUNTER 2020-09-20 11:25 | Outpatient (REF) | payer OTHER, SELFPAY ==
[2020-09-20 16:28] LABS: BUN 24 mg/dL (7-18); CREATININE 1.1 mg/dL (0.70-1.30); Calcium 9.1 mg/dL (8.5-10.1); Chloride 103 mmol/L (98-107); Glucose 153 mg/dL (74-106); Magnesium 1.8 mg/dL (1.8-2.4); Potassium 4.4 mmol/L (3.5-5.1); Sodium 137 mmol/L (136-145)
== END 2020-09-20 11:26 | disposition home or self-care (01) ==
LOC: NCHCN 11:25
PROVIDERS: PCP Family Medicine; Visit Provider Family Medicine
DX: E83.42 Hypomagnesemia (principal); E11.9 Type 2 diabetes mellitus without complications
CPT/HCPCS: 80048; 83735

== ENCOUNTER 2020-12-23 01:32 | Outpatient (CLI) | payer OTHER, SELFPAY ==
--- NOTE | 2020-12-23 11:00 | DI.NM_ITS ---
APPROVED REPORT Exam: Exercise Treadmill Patient Location: Out-Patient Room/Bed: Stress Nurse: Rosita Escobedo RN Ordering Provider:JOSSELYN HERNANDEZ, Contact Number: [phone] BMI: 28.12 Baseline Rhythm: Sinus Rhythm Comment: Flipped T waves leads II, III, aVF, V4-V6 Indications: Prior revascularization, ischemic cardiomyopathy, atherosclerosis w/o angina Medical History Medical History: CAD, ischemic cardiomyopathy, hx CHF, ICD, thrombus (right atrial), hypertension, hy pertriglyceridemia, prediabetes, family hx Cardiac Medications: Nitro, Nitroglycerin sublingual/ Nitrostat, metoprolol tartrate, metoprolol succ inate, magnesium L-lactate, lisinopril, apixaban Allergies: gamfibrozil, penicillin, spironolactone Cardiac Risk Factors: Hypertension, hypertriglyceridemia, prediabetes, CVD, family hx Previous Cardiac Procedures: KATHY (2010), ICD (2010) Pretest Chest Pain Characteristics: None Exercise History: Sedentary Physical Disabilities: None Lung Sounds: Clear to auscultation Heart Sounds: Regular Stress Test Details Test: Pharmacologic stress was paired with low level exercise. Reason for pharmacologic stress test: Flipped T waves in numerous leads. Rest Isotope: Tc-99m Sestamibi. Dose: 11.2 Date: 12/23/2020 Injection Time: 1130 Stress Isotope: Tc-99m Sestamibi. Dose: 35.6 Date: 12/23/2020 Injection Time: 1333 HR Resting HR Supine: 76 bpm Max Heart Rate (APMHR): 147.852222 bpm Resting HR Standin bpm Target HR (85% APMHR): 124.020066 bpm Max HR Achieved: 135 bpm % of APMHR: 91.84 Recovery HR: 93 bpm Comment: Metoprolol tartrate and metoprolol succinate held for 24 hrs. BP Resting BP Supine: 132/78 mmHg Resting BP Standin/74 mmHg Max BP: 146/90 mmHg Recovery BP: 132/80 mmHg ECG Resting ECG: Sinus Rhythm Ectopy: Rare PVC Comment: Flipped T waves leads II, III, aVF, V4-V6 Stress ECG: Sinus Tachycardia ST Change: No significant ST segment changes noted Arrhythmia: Rare PVC Recovery ECG: Sinus Rhythm Recovery ST Change: No significant ST segment changes noted Recovery Arrhythmia: Rare PAC, frequent multifocal PVCs Clinical Stress Symptoms: None Exercise duration: 4 min00 sec Exercise capacity: 3.09 METs Rate Pressure Product: Stress ECG Conclusion 1. Resting electrocardiogram showed diffuse ST-T abnormalities 2. The patient underwent low-level exercise paired with pharmacologic stress 3. Maximum workload was 3.09 METS, peak heart rate 91% of predicted for age 4. Electrocardiographically the test was nondiagnostic due to resting ST-T abnormalities Stress Test Summary STAGE HR BP Symptoms NOTES Supine 76 132/78 SpO2 96% 1 min post Lexiscan injection 128 146/90 SpO2 92% 3 min post Lexiscan injection 125 140/72 SpO2 98% 6 min post Lexiscan injection 102 132/80 SpO2 98% 9 min post Lexiscan injection 93 Waking lexiscan completed with pt ambulating at 2.5mph and 0.5% grade. MPI Conclusion No evidence of any significant ischemia or prior infarction EF 41% Radiologist Interpretation Radiologist Interpretation by: Chilango Minor MD Interpretation Date/Time: 12/24/2020 15:33:07
[2020-12-23] MEDS: Regadenoson 0.4 MG/5 ML SYR IVP (14:06)
== END 2020-12-23 01:52 ==
PROVIDERS: PCP Family Medicine; Visit Provider Nurse Practitioner Family
DX: I50.9 Heart failure, unspecified (principal); I25.5 Ischemic cardiomyopathy; I25.10 Atherosclerotic heart disease of native coronary artery without angina pectoris; Z95.5 Presence of coronary angioplasty implant and graft; I10 Essential (primary) hypertension; E78.1 Pure hyperglyceridemia; R73.03 Prediabetes; Z82.49 Family history of ischemic heart disease and other diseases of the circulatory system; R94.31 Abnormal electrocardiogram [ECG] [EKG]; R94.39 Abnormal result of other cardiovascular function study
CPT/HCPCS: 78452; 93016; 93018; 93017; J2785

== ENCOUNTER 2021-08-26 17:06 | Outpatient (REF) | payer MEDICARE, SELFPAY ==
[2021-08-26 13:39] LABS: Anion Gap 6.6 mmol/L (3-11); BUN 26 mg/dL (7-18); CO2 26.4 mmol/L (21.0-32.0); CREATININE 0.9 mg/dL (0.70-1.30); Calcium 8.7 mg/dL (8.5-10.1); Chloride 104 mmol/L (98-107); Cholesterol 225 mg/dL (<200); Glucose 133 mg/dL (74-106); HDL Cholesterol 27 mg/dL (40-60); Potassium 4.7 mmol/L (3.5-5.1); Sodium 137 mmol/L (136-145); Triglyceride 843 mg/dL (<150)
[2021-08-26 13:50] LABS: LDL CHOLESTEROL 63 mg/dL (<100)
== END 2021-08-26 17:07 | disposition home or self-care (01) ==
LOC: NCHCN 17:06
PROVIDERS: PCP Family Medicine; Visit Provider Family Medicine
DX: E78.1 Pure hyperglyceridemia (principal); I10 Essential (primary) hypertension
CPT/HCPCS: 80048; 80061; 83721

== ENCOUNTER 2022-08-28 10:51 | Outpatient (REF) | payer MEDICARE, SELFPAY ==
[2022-08-28 16:33] LABS: ALT 29 U/L (16-63); AST 16 U/L (15-37); Albumin 3.8 g/dL (3.4-5.0); Alkaline Phosphatase 55 U/L (46-116); Anion Gap 11.8 mmol/L (3-11); BUN 22 mg/dL (7-18); Bilirubin, Total 0.4 mg/dL (0.2-1.0); CO2 25.2 mmol/L (21.0-32.0); Calcium 8.4 mg/dL (8.5-10.1); Chloride 104 mmol/L (98-107); Cholesterol 249 mg/dL (<200); Estimated GFR 78.49 (mL/min/1.73m2); Glucose 136 mg/dL (74-106); HDL Cholesterol 32 mg/dL (40-60); Magnesium 1.7 mg/dL (1.8-2.4); Sodium 141 mmol/L (136-145); Total Protein 7.2 g/dL (6.4-8.2); Triglyceride 630 mg/dL (<150)
[2022-08-28 16:50] LABS: LDL CHOLESTEROL 82 mg/dL (<100)
[2022-08-28 16:59] LABS: Uric Acid 7.7 mg/dL (3.5-7.2)
== END 2022-08-28 10:52 | disposition home or self-care (01) ==
LOC: NCHCN 10:51
PROVIDERS: PCP Family Medicine; Visit Provider Family Medicine
DX: E11.9 Type 2 diabetes mellitus without complications (principal); E83.42 Hypomagnesemia; M10.9 Gout, unspecified; I10 Essential (primary) hypertension
CPT/HCPCS: 80053; 80061; 83721; 83735; 84550

== ENCOUNTER → 2023-06-01 00:56 | Outpatient (CLI) | payer MEDICARE, SELFPAY ==
--- NOTE | 2023-06-01 | DI.US_ITS ---
APPROVED REPORT EXAM: Comprehensive 2D, Doppler, and color-flow Echocardiogram Patient Location: Out-Patient Supervisor Assembly: Martha Freeman RDCS (AE) Indications: Systolic heart failure, Atherosclerosis of coronary artery Other Information Study Quality: Adequate Conclusion Normal left ventricular wall thickness and chamber size. EF is 35 to 40%. There is global kinesis Normal right ventricular size and function Both atria are normal in size Device lead noted in the right heart Aortic valve is mildly sclerotic and trileaflet without stenosis or regurgitation Normal mitral valve with mild regurgitation Normal tricuspid valve with trace to mild regurgitation. Estimated right ventricular systolic pressu re is 26 mmHg Wall motion Left Ventricle The left ventricle is normal size. Left ventricular systolic function is moderately decreased. There is normal left ventricular wall thickness. There is global hypokinesis of the left ventricle. There i s no ventricular septal defect visualized. LVEF is 37%. Right Ventricle The right ventricle is normal size. The right ventricular systolic function is normal. Device lead is present in the right ventricle. Atria The left atrium size is normal. The right atrium size is normal. The interatrial septum is intact wit h no evidence for an atrial septal defect. Aortic Valve The Aortic valve is mildly sclerotic. Aortic valve is trileaflet. There is no aortic valvular stenosi s. No aortic regurgitation is present. Mitral Valve The mitral valve is normal in structure. No evidence of mitral valve stenosis. Mild mitral regurgita tion. Tricuspid Valve The tricuspid valve is normal in structure. There is no tricuspid valve stenosis. Trace to mild tricu spid regurgitation. The RVSP is 26.2_ mmHg. Pulmonic Valve The pulmonary valve is normal in structure. There is no pulmonic valvular stenosis. There is no pulmo arnulfo valvular regurgitation. Great Vessels The aortic root is normal in size. The ascending aorta is mildly dilated. Aortic arch is normal in ca liber. IVC is normal in size and collapses >50% with inspiration. Pericardium There is no pericardial effusion. 2D Dimensions IVSD d PLAX 0.68 cm M: 0.6-1.2 Ao Root d 3.49 cm M: 3.1 - 3.7 LVPW d PLAX 0.75 cm M: 0.6 - 1.2 Ao Asc Diam d 3.55 cm M: 2.6 - 3.4 LVID d PLAX 5.58 cm M: 4.2 - 5.8 LVDs 4.53 cm M: 2.5 - 4.0 LV EF Teichholz 38.5 % FS 18.89 % LV EDV (Teich) 152.6 mL LV ESV (Teich) 93.8 mL M-Mode TAPSE 2.06 cm (M/F) >1.7 Auto EF LV EDV A4C 168.8 mL LV EDV A2C 170.4 mL LV EDV BP 172.7 mL LV ESV A4C 107.4 mL LV ESV A2C 104.8 mL LV ESV BP 108.0 mL LVEF(%) A4C 36.4 % LVEF(%) A2C 38.5 % LVEF(%) BP 37.5 % LV SV A4C 61.4 ml LV SV A2C 65.6 ml LV SV BP 64.7 ml LV CO A4C 4.9 L/min LV CO A2C 5.1 L/min LV CO BP 5.0 L/min HR A4C 79.13 BPM HR A2C 77.42 BPM LV EDV Index (BP) LV Strain Long Pk Overal Avg (s) 12.59 LA Volume LA Length A4C 5.5 cm LA Length A2C 4.7 cm LA Area A4C s 20.16 cm2 LA Area A2C s 17.74 cm2 LA Vol A4C A-L 62.72 mL LA Vol A2C A-L 57.28 mL LA Vol Biplane A-L 65.1 mL LA Vol/BSA A4C A-L LA Vol/BSA A2C A-L LA Vol/BSA BP A-L 32.4 mL/m2 LA Vol A4C MOD 55.4 mL LA Vol A2C MOD 54.4 mL LA Vol BP MOD 59.3 mL RA Volume RA Area A4C 16.1 cm2 RA ESV A4C (A-L) 43.1mL RA Vol/BSA A4C A-L RA Length A4C 5.1 cm RA ESV A4C (MOD) 40.0mL LV Diastology MV E' medial 0.031 (>0.07 m/s) MV E Vmax 0.45 (0.4-1.3 m/s) MV E/E' MED 14.32 (<14) MV A Vmax 0.95 (0.4-1.3 m/s) MV E' lateral 0.041 (>0.1 m/s) E/A Ratio 0.5 MV E/E' LAT 10.95 (<14) MV E' Average 0.036 m/s MV E/E'(average) 12.41 Aortic Valve AoV Vmax 1.03 m/s LVOT Vmax 0.80 m/s AoV Peak Grad 4.3 mmHg LVOT Peak Grad 2.5 mmHg AoV Area (Vmax) 2.31 cm2 LVOT VTI 0.157 m AoV VTI 0.232 m LVOT Mean Grad 1.5 mmHg AoV Mean Lars. 0.75 m/s LVOT SV 46.93 mL AoV Mean Grad 2.6 mmHg LVOT Diam s 1.95 cm AoV Area (VTI) 2.02 cm2 Velocity Ratio 0.78 Mitral Valve MV DT 340 (160-240 msec) MV Vmax TIPS 0.90 m/s MV Mean Grad 1.2 (<2mmHg) MV VTI 0.143 m Pulmonary Valve PV Vmax 0.88 (0.5-1.5 m/s) RVOT Vmax 0.72 m/s PV Peak Grad 3.1 mmHg RVOT Peak Gr. 2.0 mmHg PV Mean Lars 0.59 m/s RVOT VTI 0.137 m PV Mean Grad 1.6 mmHg RVOT Mean Gr. 0.8 mmHg Tricuspid Valve RA Pressure 3.00 mmHg TR Vmax 2.41 m/s TV S' 0.11 m/s TR Peak Grad 23.1 mmHg RVSP (TR) 26.2 mmHg
== END ==
PROVIDERS: PCP Family Medicine; Visit Provider Nurse Practitioner Family
DX: I25.10 Atherosclerotic heart disease of native coronary artery without angina pectoris (principal)
CPT/HCPCS: 93306

== ENCOUNTER 2024-02-18 11:46 | Outpatient (REF) | payer MEDICARE, SELFPAY ==
[2024-02-18 16:06] LABS: Anion Gap 13.6 mmol/L (3-11); BUN 27 mg/dL (7-18); CO2 23.4 mmol/L (21.0-32.0); CREATININE 1.4 mg/dL (0.70-1.30); Calcium 9.1 mg/dL (8.5-10.1); Chloride 101 mmol/L (98-107); Estimated GFR 52.09 (mL/min/1.73m2); Glucose 140 mg/dL (74-106); Potassium 5.1 mmol/L (3.5-5.1); Sodium 138 mmol/L (136-145); Uric Acid 7.5 mg/dL (3.5-7.2)
[2024-02-18 16:20] LABS: Microalb ug/mg Crea 109.7 ug/mg Cr
== END 2024-02-18 11:47 | disposition home or self-care (01) ==
LOC: NCHCN 11:46
PROVIDERS: PCP Family Medicine; Visit Provider Student in an Organized Health Care Education/Training Program
DX: E11.9 Type 2 diabetes mellitus without complications (principal); I10 Essential (primary) hypertension; M10.9 Gout, unspecified
CPT/HCPCS: 80048; 82043; 82570; 84550

== ENCOUNTER 2024-06-12 00:50 | Outpatient (CLI) | payer MEDICARE, SELFPAY ==
--- NOTE | 2024-06-12 | DI.NM_ITS ---
APPROVED REPORT Exam: Pharmacologic Patient Location: Out-Patient Room/Bed: Stress Nurse: Rafaela Acosta RN Ordering Provider:JOSSELYN HERNANDEZ, Contact Number: [phone] BMI: 27.97 Baseline Rhythm: Sinus Rhythm Comment: Diffuse ST-T abnormalities Indications: Atherosclerosis of [place] coronary artery of heart wo angina pectoris Medical History Medical History: CHF (EF 40-45%), ischemic cardiomyopathy HLD, ICD implant Cardiac Medications: Lisinopril, metoprolol succinate, nitro, rivaroxaban Allergies: Gemfibrozil, penicillins, spironolactone, statins Cardiac Risk Factors: Family hx, HTN, HLD, pre-diabetes Previous Cardiac Procedures: David x2 in 2010 Pretest Chest Pain Characteristics: None Exercise History: Indeterminate Physical Disabilities: None Lung Sounds: Fine crackles R mid-base Heart Sounds: Regular Stress Test Details Test: Pharmacologic stress was paired with low level exercise. Reason for pharmacologic stress test: physical limitation. Nuclear Acquisition: Rest Tc-99m/Stress Tc-99m 1 day Rest Isotope: Tc-99m Sestamibi. Dose: 10.0 Date: 06/12/2024 Injection Time: 1100 Stress Isotope: Tc-99m Sestamibi. Dose: 30.0 Date: 06/12/2024 Injection Time: 1325 HR Resting HR Supine: 69 bpm Max Heart Rate (APMHR): 143 bpm Resting HR Standin bpm Target HR (85% APMHR): 122 bpm Max HR Achieved: 118 bpm % of APMHR: 83 Recovery HR: 79 bpm BP Resting BP Supine: 110/68 mmHg Resting BP Standin/80 mmHg Max BP: 140/76 mmHg Recovery BP: 128/70 mmHg ECG Resting ECG: Sinus Rhythm, nonspecific ST-T abnormalities Ectopy: Occasional PVC's Stress ECG: Sinus tachycardia, nonspecific ST-T abnormalities ST Change: Nondiagnostic low heart rate Arrhythmia: Occasional PVC's Recovery ECG: Sinus Rhythm, nonspecific ST-T abnormalities Recovery ST Change: Nondiagnostic low heart rate Recovery Arrhythmia: Occasional PVC's Clinical Stress Symptoms: Mild SOB Angina Score: None Rate Pressure Product: [id number] Stress ECG Conclusion 1. Resting electrocardiogram showed an interventricular conduction delay, nondiagnostic ST-T abnormal ities 2. Patient underwent testing using a combination of low-level exercise and pharmacologic stress with regadenoson 3. Peak heart rate achieved was 83% of maximal predicted for age 4. The electrocardiographic portion of the test was nondiagnostic 5. See MPI report Stress Test Summary STAGE HR BP SpO2 Symptoms NOTES Supine 69 110/68 98% Standing 75 130/80 1 min post Lexiscan injection 93 140/76 96% Mild SOB 3 min post Lexiscan injection 88 130/82 98% 6 min post Lexiscan injection 79 128/70 97% All symptoms resolved. Patient noted to have fine crackles in R mid-base. Patient sitting upright at time of assessment, david athing comfortably, in no apparent distress. O2 noted to be 98% RA. Diffuse t wave changes noted. Dr. Liao notified and viewed EKG. Ok to proceed with walking kusum test. Patient proceeded to imaging amb ulatory post stress portion of test. All symptoms resolved. MPI Conclusion Myocardial perfusion imaging showed apical thinning, no evidence of significant ischemia or prior inf arction Calculated EF was 32%. There was global hypokinesis
[2024-06-12] MEDS: Regadenoson 0.4 MG/5 ML SYR IVP (13:37)
== END 2024-06-12 01:10 ==
PROVIDERS: PCP Family Medicine; Visit Provider Internal Medicine Cardiovascular Disease
DX: I25.10 Atherosclerotic heart disease of native coronary artery without angina pectoris (principal); I25.5 Ischemic cardiomyopathy
CPT/HCPCS: 78452; 93016; 93018; 93017; J2785

== ENCOUNTER 2024-07-04 01:36 | Outpatient (CLI) | payer MEDICARE, SELFPAY ==
--- NOTE | 2024-07-04 12:30 | DI.US_ITS ---
APPROVED REPORT EXAM: Comprehensive 2D, Doppler, and color-flow Echocardiogram Patient Location: Out-Patient [employer] Workers: Scott Page RDCS (AE) Indications: Ischemic cardiomyopathy, chronic systolic heart failure Other Information Study Quality: Fair Conclusion Normal left ventricular wall thickness and chamber size. Ejection fraction is 35%. There is global hypokinesis Normal right ventricular size and function Both atria are normal in size The aortic valve is sclerotic and trileaflet with trace regurgitation Normal mitral valve with trace regurgitation Mild tricuspid regurgitation. Estimated right ventricular systolic pressure is 25 mmHg Wall motion Left Ventricle The left ventricle is normal size. Left ventricular systolic function is moderately decreased. There is normal left ventricular wall thickness. There is global hypokinesis of the left ventricle. Limited subcostal imaging due to bowel gas. LVEF is 35%. Right Ventricle The right ventricle is normal size. The right ventricular systolic function is normal. Device lead is present in the right ventricle. Atria The left atrium size is normal. Right atrium is moderately dilated. Limited subcostal imaging due to bowel gas. Aortic Valve The aortic valve is sclerotic. Aortic valve is trileaflet. There is no aortic valvular stenosis. Trac e aortic regurgitation. Mitral Valve The mitral valve is normal in structure. No evidence of mitral valve stenosis. Trace mitral regurgita tion. Tricuspid Valve The tricuspid valve is normal in structure. There is no tricuspid valve stenosis. Mild tricuspid regu rgitation. The RVSP is 25.2 mmHg. Pulmonic Valve The pulmonary valve is normal in structure. There is no pulmonic valvular stenosis. Trace pulmonic re gurgitation. Great Vessels The aortic root is normal in size. The ascending aorta is normal in size. Aortic arch is normal in ca liber. IVC is normal in size and collapses >50% with inspiration. Pericardium There is no pericardial effusion. 2D Dimensions IVSD d PLAX 1.05 cm M: 0.6-1.2 Ao Root d 3.59 cm M: 3.1 - 3.7 LVPW d PLAX 1.05 cm M: 0.6 - 1.2 Ao Asc Diam d 3.17 cm M: 2.6 - 3.4 LVID d PLAX 5.15 cm M: 4.2 - 5.8 LVDs 4.28 cm M: 2.5 - 4.0 LV EF Teichholz 35.0 % FS 16.81 % LV EDV (Teich) 126.6 mL LV ESV (Teich) 82.3 mL Stroke Vol Index (Teich) 22.72 M-Mode TAPSE 2.19 cm (M/F) >1.7 Auto EF LV EDV A4C 156.3 mL LV EDV A2C 90.9 mL LV EDV BP 123.8 mL LV ESV A4C 100.8 mL LV ESV A2C 56.1 mL LV ESV BP 77.9 mL LVEF(%) A4C 35.5 % LVEF(%) A2C 38.3 % LVEF(%) BP 37.1 % LV SV A4C 55.5 ml LV SV A2C 34.8 ml LV SV BP 45.9 ml LV CO A4C 4.1 L/min LV CO A2C 2.4 L/min LV CO BP 3.3 L/min HR A4C 74.81 BPM HR A2C 70.04 BPM LV EDV Index (BP) LA Volume LA Length A4C 5.0 cm LA Length A2C 4.4 cm LA Area A4C s 14.24 cm2 LA Area A2C s 12.63 cm2 LA Vol A4C A-L 34.12 mL LA Vol A2C A-L 30.62 mL LA Vol Biplane A-L 34.5 mL LA Vol/BSA A4C A-L LA Vol/BSA A2C A-L LA Vol/BSA BP A-L 17.7 mL/m2 LA Vol A4C MOD 30.5 mL LA Vol A2C MOD 26.8 mL LA Vol BP MOD 30.5 mL RA Volume RA Area A4C 13.1 cm2 RA ESV A4C (A-L) 35.7mL RA Vol/BSA A4C A-L RA Length A4C 4.1 cm RA ESV A4C (MOD) 34.0mL LV Diastology MV E' medial 0.035 (>0.07 m/s) MV E Vmax 0.40 (0.4-1.3 m/s) MV E/E' MED 11.62 (<14) MV A Vmax 0.85 (0.4-1.3 m/s) MV E' lateral 0.067 (>0.1 m/s) E/A Ratio 0.5 MV E/E' LAT 6.05 (<14) MV E' Average 0.051 m/s MV E/E'(average) 7.96 Aortic Valve AoV Vmax 0.93 m/s LVOT Vmax 0.60 m/s AoV Peak Grad 3.5 mmHg LVOT Peak Grad 1.5 mmHg AoV Area (Vmax) 2.12 cm2 LVOT VTI 0.133 m AoV VTI 0.200 m LVOT Mean Grad 0.8 mmHg AoV Mean Lars. 0.65 m/s LVOT SV 43.61 mL AoV Mean Grad 2.0 mmHg LVOT Diam s 2.00 cm AoV Area (VTI) 2.18 cm2 AV Regurg Peak Gr. 3.48 mmHg Velocity Ratio 0.65 Mitral Valve MV DT 188 (160-240 msec) Pulmonary Valve PV Vmax 0.97 (0.5-1.5 m/s) RVOT Vmax 0.47 m/s PV Peak Grad 3.8 mmHg RVOT Peak Gr. 0.9 mmHg PV Mean Lars 0.59 m/s RVOT VTI 0.106 m PV Mean Grad 1.7 mmHg RVOT Mean Gr. 0.5 mmHg Tricuspid Valve RA Pressure 3.00 mmHg TR Vmax 2.36 m/s TR Peak Grad 22.2 mmHg RVSP (TR) 25.2 mmHg
== END 2024-07-04 01:56 ==
PROVIDERS: PCP Student in an Organized Health Care Education/Training Program; Visit Provider Internal Medicine Cardiovascular Disease
DX: I25.10 Atherosclerotic heart disease of native coronary artery without angina pectoris (principal)
CPT/HCPCS: 93306

== ENCOUNTER 2024-07-10 02:01 | Outpatient (CLI) | payer MEDICARE, SELFPAY ==
[2024-07-10 08:36] LABS: ALT 29 U/L (16-63); AST 18 U/L (15-37); Albumin 3.9 g/dL (3.4-5.0); Alkaline Phosphatase 57 U/L (46-116); Anion Gap 10.4 mmol/L (3-11); BUN 26 mg/dL (7-18); Bilirubin, Total 0.4 mg/dL (0.2-1.0); CO2 25.6 mmol/L (21.0-32.0); CREATININE 1.1 mg/dL (0.70-1.30); Chloride 102 mmol/L (98-107); Cholesterol 219 mg/dL (<200); Estimated GFR 69.14 (mL/min/1.73m2); Glucose 143 mg/dL (74-106); HDL Cholesterol 33 mg/dL (>or=40); Potassium 4.4 mmol/L (3.5-5.1); Sodium 138 mmol/L (136-145); Total Protein 7.5 g/dL (6.4-8.2); Triglyceride 466 mg/dL (<150)
[2024-07-10 08:53] LABS: LDL CHOLESTEROL 86 mg/dL (<100)
== END 2024-07-10 02:02 | disposition home or self-care (01) ==
LOC: LBO 02:02
PROVIDERS: PCP Student in an Organized Health Care Education/Training Program; Visit Provider Nurse Practitioner Family
DX: I25.10 Atherosclerotic heart disease of native coronary artery without angina pectoris (principal); I50.22 Chronic systolic (congestive) heart failure; I25.5 Ischemic cardiomyopathy; E78.2 Mixed hyperlipidemia
CPT/HCPCS: 36415; 80053; 80061; 83721

== ENCOUNTER 2024-08-19 15:07 | Outpatient (REF) | payer MEDICARE, SELFPAY ==
[2024-08-19 18:24] LABS: COMMENT (LAB VIEW ONLY) 144.36 mg/dL; Microalb ug/mg Crea 12.3 ug/mg Cr
[2024-08-19 18:36] LABS: Anion Gap 8.9 mmol/L (3-11); BUN 25 mg/dL (7-18); CO2 25.1 mmol/L (21.0-32.0); CREATININE 1.2 mg/dL (0.70-1.30); Calcium 8.5 mg/dL (8.5-10.1); Chloride 104 mmol/L (98-107); Estimated GFR 62.29 (mL/min/1.73m2); Glucose 125 mg/dL (74-106); Magnesium 1.7 mg/dL (1.8-2.4); Potassium 4.2 mmol/L (3.5-5.1); Sodium 138 mmol/L (136-145)
== END 2024-08-19 15:08 | disposition home or self-care (01) ==
LOC: NCHCN 15:07
PROVIDERS: PCP Student in an Organized Health Care Education/Training Program; Visit Provider Student in an Organized Health Care Education/Training Program
DX: E11.9 Type 2 diabetes mellitus without complications (principal); I10 Essential (primary) hypertension
CPT/HCPCS: 80048; 82043; 82570; 83735